=== PATIENT | female | born 1985 | race Caucasian/White ===

== ENCOUNTER 2018-09-25 15:08 | Emergency (ER) | payer OTHER ==
[~2018-09-25] VITALS: Ht 172.7 cm; Wt 61.2 kg
[2018-09-25] MEDS ORDERED: KENALOG 0.1% OI15 GM T (17:14)
[2018-09-25] MEDS ORDERED: PREDNISONE10 MG PO (17:14)
== END 2018-09-25 17:33 | disposition home or self-care (01) ==
LOC: ED 15:08
DX: L23.2 Allergic contact dermatitis due to cosmetics (principal); Z88.0 Allergy status to penicillin